=== PATIENT | male | born 1960 | race Caucasian/White ===

== ENCOUNTER 2016-11-04 00:34 | Emergency (ER) | payer OTHER ==
[~2016-11-04] VITALS: Ht 190.5 cm; Wt 105.4 kg
[~2016-11-04 00:34] MED LIST: ASPIR 8181 M1 PO; ASPIR-LOW81 MG PO; ATORVASTATIN CA20 MG PO; Aspirin EC PO; BENZTROPINE MESY1 MG PO; COGENTIN1 MG PO; DAILY VALUE1 EACH PO; DOCUSATE SODIU100 MG PO; FAMOTIDINE20 MG PO; MIRALAX17 GM PO; NICODERM CQ1 EAC2 TP; OXCARBAZEPINE300 MG PO; OXCARBAZEPINE600 MG PO; PRAVASTATIN SOD80 MG PO; QUETIAPINE FUM200 MG PO; QUETIAPINE FUM300 MG PO; QUETIAPINE FUM400 MG PO; RISPERDAL1 MG PO; RISPERIDONE1 MG PO; RISPERIDONE3 MG PO; STOOL SOFTENER100 M1 PO; VIMPAT100 MG PO; VIMPAT50 MG PO; VITAMIN D31000 UNIT PO
[2016-11-04 02:01] LABS: MCH 31.8 PG (29.0-34.0); MCHC 34.2 G/DL (30.0-36.0); MEAN PLAT.VOLUME 10.5 uM^3 (9.0-12.4); PLATELET COUNT 188 K/uL (156-360); RBC DIS.WIDTH-CV 12.8 % (11.8-14.6); RBC DIS.WIDTH-SD 43.6 % (39-53); RED BLOOD COUNT 3.87 M/uL (4.00-5.50); WHITE BLOOD COUNT 7.1 K/uL (4.1-10.2)
[2016-11-04 02:19] LABS: CHLORIDE 107 mEq/L (99-109); POTASSIUM 3.7 mEq/L (3.7-5.4); SODIUM 138 mEq/L (136-147)
[2016-11-04 02:21] LABS: GLUCOSE 106 mg/dL (70-99)
[2016-11-04 02:22] LABS: ANION GAP 9 MEQ/L (2-14)
[2016-11-04 02:24] LABS: SERUM ETHYL ALCOHOL < 10 mg/dL
[2016-11-04 02:25] LABS: GFR ESTIMATE (CALCULATED) > 59 mL/min/
[2016-11-04 02:26] LABS: UREA NITROGEN (BUN) 11 mg/dL (9-23)
[2016-11-04 02:45] VITALS: BP 124/87
== END 2016-11-04 02:46 | disposition home or self-care (01) ==
LOC: EME 00:34
PROVIDERS: Emergency Medicine
DX: G47.00 Insomnia, unspecified (principal); F31.9 Bipolar disorder, unspecified; F20.9 Schizophrenia, unspecified; I10 Essential (primary) hypertension; F17.200 Nicotine dependence, unspecified, uncomplicated
CPT/HCPCS: 80048; 80178; 81003; 85027; 90839; 99281; 99283; G0480

== ENCOUNTER 2017-04-11 23:36 | Emergency (ER) | payer OTHER ==
[~2017-04-11] VITALS: Ht 188 cm; Wt 104.7 kg
[2017-04-12 01:20] LABS: HEMATOCRIT 35.9 % (38.0-50.0); MCH 33.1 PG (29.0-34.0); MCHC 34.3 G/DL (30.0-36.0); MCV 96.5 FL (86-99); MEAN PLAT.VOLUME 11.1 uM^3 (9.0-12.4); PLATELET COUNT 172 K/uL (156-360); RBC DIS.WIDTH-CV 12.4 % (11.8-14.6); RBC DIS.WIDTH-SD 43.8 % (39-53); RED BLOOD COUNT 3.72 M/uL (4.00-5.50)
[2017-04-12 01:26] LABS: PROTHROMBIN TIME 11.3 SEC (10.2-12.9)
[2017-04-12 01:32] LABS: CHLORIDE 110 mEq/L (99-109); POTASSIUM 3.4 mEq/L (3.7-5.4); SODIUM 139 mEq/L (136-147)
[2017-04-12 01:34] LABS: GLUCOSE 122 mg/dL (70-99)
[2017-04-12 01:35] LABS: ANION GAP 9 MEQ/L (2-14)
[2017-04-12 01:38] LABS: GFR ESTIMATE (CALCULATED) > 59 mL/min/; UREA NITROGEN (BUN) 7 mg/dL (9-23)
[2017-04-12 02:35] LABS: TROP-I INTERPRETATION NEGATIVE; TROPONIN-I < 0.01 ng/mL (0.0-0.30)
[2017-04-12] MEDS ORDERED: XARELTO1 EACH PO (03:14)
[2017-04-12 03:26] VITALS: BP 123/85
== END 2017-04-12 03:40 | disposition home or self-care (01) ==
LOC: EME 23:36
PROVIDERS: Nurse Practitioner Family
DX: I82.441 Acute embolism and thrombosis of right tibial vein (principal); R73.9 Hyperglycemia, unspecified; D64.9 Anemia, unspecified; F17.200 Nicotine dependence, unspecified, uncomplicated; R79.89 Other specified abnormal findings of blood chemistry; Z86.718 Personal history of other venous thrombosis and embolism; F31.9 Bipolar disorder, unspecified; F20.9 Schizophrenia, unspecified; Z88.6 Allergy status to analgesic agent
CPT/HCPCS: 80048; 80178; 83880; 84484; 85027; 85610; 85730; 93005; 93970; 99281; 99284

== ENCOUNTER 2017-04-19 19:07 | Emergency (ER) | payer OTHER ==
[~2017-04-19] VITALS: Ht 188 cm; Wt 101.9 kg
[~2017-04-19 19:07] MED LIST changes: +XARELTO1 EACH PO
[2017-04-19] MEDS ORDERED: AQUAPHOR OINTM105 GM TP (23:12)
[2017-04-19] MEDS ORDERED: ATARAX,VISTARIL50 MG PO (23:12)
[2017-04-19 23:41] VITALS: BP 0/0
== END 2017-04-19 23:42 | disposition home or self-care (01) ==
LOC: EME 19:07 → RME 19:07
DX: I82.441 Acute embolism and thrombosis of right tibial vein (principal); D68.59 Other primary thrombophilia; F31.9 Bipolar disorder, unspecified; L85.3 Xerosis cutis; L20.9 Atopic dermatitis, unspecified; F20.9 Schizophrenia, unspecified; I10 Essential (primary) hypertension; F41.9 Anxiety disorder, unspecified; F32.9 Major depressive disorder, single episode, unspecified; F17.200 Nicotine dependence, unspecified, uncomplicated; Z88.6 Allergy status to analgesic agent; Z88.8 Allergy status to other drugs, medicaments and biological substances
CPT/HCPCS: 80178; 90839; 93971; 99281; 99284

== ENCOUNTER 2017-06-25 23:02 | Emergency (ER) | payer OTHER ==
[~2017-06-25] VITALS: Ht 190.5 cm; Wt 101.4 kg
[~2017-06-25 23:02] MED LIST changes: +AQUAPHOR OINTM105 GM TP; +ATARAX,VISTARIL50 MG PO
[2017-06-26] MEDS ORDERED: LIDOCAINE700 MG TP (03:45)
[2017-06-26] MEDS ORDERED: TYLENOL WITH C1 EACH PO (03:46)
[2017-06-26] MEDS ORDERED: FLEXERIL10 MG PO (03:46)
[2017-06-26 03:59] VITALS: BP 119/80
== END 2017-06-26 04:04 | disposition home or self-care (01) ==
LOC: EME 23:02
DX: S39.012A Strain of muscle, fascia and tendon of lower back, initial encounter (principal); M54.9 Dorsalgia, unspecified; G89.29 Other chronic pain; K21.9 Gastro-esophageal reflux disease without esophagitis; F17.200 Nicotine dependence, unspecified, uncomplicated; W18.40XA Slipping, tripping and stumbling without falling, unspecified, initial encounter; Z86.718 Personal history of other venous thrombosis and embolism; Z88.6 Allergy status to analgesic agent
CPT/HCPCS: 72070; 72100; 99281; 99284

== ENCOUNTER 2017-06-27 10:16 | Emergency (ER) | payer OTHER ==
[~2017-06-27] VITALS: Ht 190.5 cm; Wt 106.7 kg
[~2017-06-27 10:16] MED LIST changes: +FLEXERIL10 MG PO; +LIDOCAINE700 MG TP; +TYLENOL WITH C1 EACH PO
[2017-06-27 12:46] VITALS: BP 133/89
== END 2017-06-27 12:46 | disposition home or self-care (01) ==
LOC: EME 10:16
DX: S60.221A Contusion of right hand, initial encounter (principal); W22.09XA Striking against other stationary object, initial encounter; Z88.6 Allergy status to analgesic agent; Z88.8 Allergy status to other drugs, medicaments and biological substances
CPT/HCPCS: 73130; 99281; 99283

== ENCOUNTER 2017-06-27 21:53 | Emergency (ER) | payer OTHER ==
[~2017-06-27] VITALS: Ht 190.5 cm; Wt 101.8 kg
[2017-06-27 22:38] LABS: BASOPHIL (%) 0.7 % (0-1); EOSINOPHIL (%) 6.2 % (0-5); EOSINOPHIL COUNT 0.4 K/uL (0-0.3); HEMOGLOBIN 12.8 G/DL (12.5-16.6); IMMATURE GRANULOCYTE (%) 0.2 % (0.0-0.7); LYMPHOCYTE (%) 29.4 % (15-42); LYMPHOCYTE COUNT 1.7 K/uL (1.0-2.8); MCH 32.7 PG (29.0-34.0); MCHC 34.6 G/DL (30.0-36.0); MCV 94.4 FL (86-99); MONOCYTE COUNT 0.6 K/uL (0-0.8); NEUTROPHIL (%) 53.5 % (45-76); NEUTROPHIL COUNT 3.1 K/uL (1.8-6.4); PLATELET COUNT 142 K/uL (156-360); RBC DIS.WIDTH-CV 12.5 % (11.8-14.6); RBC DIS.WIDTH-SD 43.2 % (39-53); RED BLOOD COUNT 3.92 M/uL (4.00-5.50); WHITE BLOOD COUNT 5.8 K/uL (4.1-10.2)
[2017-06-27 22:50] LABS: ALBUMIN 4.1 g/dL (3.2-4.8); CHLORIDE 108 mEq/L (99-109); SODIUM 138 mEq/L (136-147)
[2017-06-27 22:53] LABS: GLUCOSE 121 mg/dL (70-99); TOTAL PROTEIN 6.2 g/dL (6.4-8.3)
[2017-06-27 22:54] LABS: TOTAL BILIRUBIN 0.4 mg/dL (0.0-1.0)
[2017-06-27 22:55] LABS: SERUM ETHYL ALCOHOL < 10 mg/dL
[2017-06-27 22:56] LABS: ALKALINE PHOSPHATASE 41 IU/L (3-129); CREATININE 0.8 mg/dL (0.6-1.3); GFR ESTIMATE (CALCULATED) > 59 mL/min/ (58.99-99999)
[2017-06-27 22:57] LABS: UREA NITROGEN (BUN) 11 mg/dL (9-23)
[2017-06-27 22:58] LABS: AST (GOT) 25 IU/L (2-34)
[2017-06-27 22:59] LABS: ALT (GPT) 16 IU/L (3-49)
[2017-06-28 01:24] LABS: AMPHETAMINE NEGATIVE (500 ng/mL); BARBITURATES NEGATIVE (200 ng/mL); BENZODIAZEPINES NEGATIVE (150 ng/mL); BUPRENORPHINE NEGATIVE (10 ng/mL); COCAINE NEGATIVE (150 ng/mL); METHADONE NEGATIVE (200 ng/mL); METHAMPHETAMINE NEGATIVE (500 ng/mL); OPIATES (MORPHINE) PRESUMPTIVE POSITIVE (100 ng/mL); OXYCODONE NEGATIVE (100 ng/mL); PHENCYCLIDINE NEGATIVE (25 ng/mL); PROPOXYPHENE NEGATIVE (300 ng/mL); THC CANNABINOIDS NEGATIVE (50 ng/mL); TRICYCLIC ANTIDEPRESSANTS PRESUMPTIVE POSITIVE (300 ng/mL)
[2017-06-28 01:27] VITALS: BP 124/88
== END 2017-06-28 01:28 | disposition home or self-care (01) ==
LOC: EME → EDBD 21:53 → EME 21:53
PROVIDERS: Emergency Medicine
DX: F20.9 Schizophrenia, unspecified (principal); F31.9 Bipolar disorder, unspecified; R56.9 Unspecified convulsions; F17.200 Nicotine dependence, unspecified, uncomplicated; Z88.6 Allergy status to analgesic agent
CPT/HCPCS: 80053; 80164; 80178; 84999; 85025; 90839; 99281; 99284; G0480

== ENCOUNTER 2017-07-18 15:04 | Emergency (ER) | payer OTHER ==
[~2017-07-18] VITALS: Ht 190.5 cm; Wt 100.9 kg
[2017-07-18 16:15] LABS: HEMATOCRIT 41.1 % (38.0-50.0); HEMOGLOBIN 14.3 G/DL (12.5-16.6); MCHC 34.8 G/DL (30.0-36.0); MCV 94.9 FL (86-99); PLATELET COUNT 171 K/uL (156-360); RBC DIS.WIDTH-CV 12.1 % (11.8-14.6); RBC DIS.WIDTH-SD 42.6 % (39-53); RED BLOOD COUNT 4.33 M/uL (4.00-5.50); WHITE BLOOD COUNT 7.2 K/uL (4.1-10.2)
[2017-07-18 16:32] LABS: CHLORIDE 110 mEq/L (99-109); POTASSIUM 4.3 mEq/L (3.7-5.4); SODIUM 141 mEq/L (136-147)
[2017-07-18 16:34] LABS: GLUCOSE 89 mg/dL (70-99)
[2017-07-18 16:37] LABS: SERUM ETHYL ALCOHOL < 10 mg/dL
[2017-07-18 16:38] LABS: CREATININE 1.2 mg/dL (0.6-1.3); GFR ESTIMATE (CALCULATED) > 59 mL/min/ (58.99-99999)
[2017-07-18 16:40] LABS: UREA NITROGEN (BUN) 17 mg/dL (9-23)
[2017-07-18 16:41] LABS: ACETAMINOPHEN (TYLENOL) < 10 mcg/mL (10-30); SALICYLATE < 5.0 MG/DL (15-30)
[2017-07-18 17:05] LABS: AMPHETAMINE NEGATIVE (500 ng/mL); BARBITURATES NEGATIVE (200 ng/mL); BENZODIAZEPINES NEGATIVE (150 ng/mL); BUPRENORPHINE NEGATIVE (10 ng/mL); COCAINE NEGATIVE (150 ng/mL); METHADONE NEGATIVE (200 ng/mL); METHAMPHETAMINE NEGATIVE (500 ng/mL); OPIATES (MORPHINE) NEGATIVE (100 ng/mL); OXYCODONE NEGATIVE (100 ng/mL); PHENCYCLIDINE NEGATIVE (25 ng/mL); PROPOXYPHENE NEGATIVE (300 ng/mL); THC CANNABINOIDS NEGATIVE (50 ng/mL); TRICYCLIC ANTIDEPRESSANTS PRESUMPTIVE POSITIVE (300 ng/mL)
[2017-07-18 18:01] LABS: APPEARANCE SL.HAZY ((CLEAR)); BILIRUBIN NEGATIVE; BLOOD NEGATIVE; COLOR YELLOW ((YELLOW)); GLUCOSE (STRIP) NEGATIVE; KETONES NEGATIVE; LEUKOCYTES NEGATIVE; NITRITE NEGATIVE; PROTEIN (STRIP) 30; SPECIFIC GRAVITY 1.025 (1.000-1.030); UROBILINOGEN 0.2 MG/DL (0.2-1.0)
[2017-07-18 18:11] LABS: BACTERIA NONE SEEN /HPF; EPITHELIAL CELLS RARE /HPF; HYALINE CASTS 0-5 /LPF; MUCUS 3+ /LPF; RED BLOOD CELLS 0-5 /HPF (0-5); UCUL ADDED? NO; WHITE BLOOD CELLS 0-5 /HPF (0-5)
[2017-07-18 18:38] VITALS: BP 119/66
== END 2017-07-18 18:53 | disposition home or self-care (01) ==
LOC: EME 15:04
PROVIDERS: Emergency Medicine
DX: R40.0 Somnolence (principal); T50.995A Adverse effect of other drugs, medicaments and biological substances, initial encounter; F03.90 Unspecified dementia, unspecified severity, without behavioral disturbance, psychotic disturbance, mood disturbance, and anxiety; F20.9 Schizophrenia, unspecified; F31.9 Bipolar disorder, unspecified; R56.9 Unspecified convulsions; F17.200 Nicotine dependence, unspecified, uncomplicated; Z88.6 Allergy status to analgesic agent; Z88.8 Allergy status to other drugs, medicaments and biological substances
CPT/HCPCS: 80048; 81003; 85027; 99281; 99285; G0480

== ENCOUNTER 2017-09-24 19:57 | Emergency (ER) | payer OTHER ==
[~2017-09-24] VITALS: Ht 182.9 cm; Wt 101.4 kg
[2017-09-24 21:03] LABS: HEMATOCRIT 37.4 % (38.0-50.0); HEMOGLOBIN 13.4 G/DL (12.5-16.6); MCH 33.8 PG (29.0-34.0); MCHC 35.8 G/DL (30.0-36.0); MCV 94.2 FL (86-99); PLATELET COUNT 163 K/uL (156-360); RBC DIS.WIDTH-CV 11.8 % (11.8-14.6); RBC DIS.WIDTH-SD 41.1 % (39-53); RED BLOOD COUNT 3.97 M/uL (4.00-5.50); WHITE BLOOD COUNT 8.2 K/uL (4.1-10.2)
[2017-09-24 21:16] LABS: CHLORIDE 108 mEq/L (99-109); POTASSIUM 4.1 mEq/L (3.7-5.4); SODIUM 140 mEq/L (136-147)
[2017-09-24 21:18] LABS: GLUCOSE 126 mg/dL (70-99)
[2017-09-24 21:21] LABS: SERUM ETHYL ALCOHOL < 10 mg/dL
[2017-09-24 21:22] LABS: CREATININE 1.1 mg/dL (0.6-1.3); GFR ESTIMATE (CALCULATED) > 59 mL/min/ (58.99-99999)
[2017-09-24 21:23] LABS: UREA NITROGEN (BUN) 7 mg/dL (9-23)
[2017-09-24] MEDS ORDERED: BUPROPION XL150 MG PO (21:25)
[2017-09-24] MEDS ORDERED: CARBAMAZEPINE400 MG PO (21:26)
[2017-09-24] MEDS ORDERED: ARICEPT10 MG PO (21:26)
[2017-09-24] MEDS ORDERED: DEPAKOTE500 MG PO (21:26)
[2017-09-24] MEDS ORDERED: LITHIUM CARBON300 MG PO (21:27)
[2017-09-24] MEDS ORDERED: MIRALAX17 GM PO (21:27)
[2017-09-24] MEDS ORDERED: QUETIAPINE FUM400 MG PO (21:28)
[2017-09-24] MEDS ORDERED: ZYPREXA10 MG PO (21:28)
[2017-09-24 22:25] VITALS: BP 155/103
== END 2017-09-24 22:27 | disposition home or self-care (01) ==
LOC: EME 19:57
PROVIDERS: Emergency Medicine
DX: F12.10 Cannabis abuse, uncomplicated (principal); F31.9 Bipolar disorder, unspecified; F20.9 Schizophrenia, unspecified; F17.200 Nicotine dependence, unspecified, uncomplicated; Z88.6 Allergy status to analgesic agent; Z88.8 Allergy status to other drugs, medicaments and biological substances
CPT/HCPCS: 80048; 85027; 90839; 99281; 99284; G0480

== ENCOUNTER 2017-09-26 22:14 | Emergency (ER) | payer OTHER ==
[~2017-09-26] VITALS: Ht 190.5 cm; Wt 97.7 kg
[~2017-09-26 22:14] MED LIST changes: +ARICEPT10 MG PO; +BUPROPION XL150 MG PO; +CARBAMAZEPINE400 MG PO; +DEPAKOTE500 MG PO; +LITHIUM CARBON300 MG PO; +ZYPREXA10 MG PO
[2017-09-27 00:36] VITALS: BP 121/80
== END 2017-09-27 00:36 | disposition home or self-care (01) ==
LOC: EME 22:14
DX: F31.9 Bipolar disorder, unspecified (principal); F20.9 Schizophrenia, unspecified; F17.200 Nicotine dependence, unspecified, uncomplicated
CPT/HCPCS: 90839; 99281; 99284

== ENCOUNTER 2017-09-27 22:50 | Emergency (ER) | payer OTHER ==
[~2017-09-27] VITALS: Ht 190.5 cm; Wt 103.7 kg
[2017-09-27 22:56] VITALS: BP 122/86
== END 2017-09-28 00:20 | disposition left against medical advice (07) ==
LOC: EME 22:50
DX: Z53.21 Procedure and treatment not carried out due to patient leaving prior to being seen by health care provider (principal)

== ENCOUNTER 2017-12-06 21:08 | Emergency (ER) | payer OTHER ==
[~2017-12-06] VITALS: Ht 190.5 cm; Wt 103.1 kg
[2017-12-06] MEDS ORDERED: SIMVASTATIN10 MG PO (21:31)
[2017-12-06 23:10] LABS: BASOPHIL (%) 0.8 % (0-1); BASOPHIL COUNT 0.1 K/uL (0-0.1); EOSINOPHIL (%) 4.2 % (0-5); EOSINOPHIL COUNT 0.3 K/uL (0-0.3); HEMATOCRIT 38.4 % (38.0-50.0); HEMOGLOBIN 13.3 G/DL (12.5-16.6); IMMATURE GRANULOCYTE (%) 0.3 % (0.0-0.7); LYMPHOCYTE (%) 30.7 % (15-42); LYMPHOCYTE COUNT 2.2 K/uL (1.0-2.8); MCH 32.5 PG (29.0-34.0); MCHC 34.6 G/DL (30.0-36.0); MCV 93.9 FL (86-99); MONOCYTE (%) 9.6 % (3-12); MONOCYTE COUNT 0.7 K/uL (0-0.8); NEUTROPHIL (%) 54.4 % (45-76); NEUTROPHIL COUNT 3.9 K/uL (1.8-6.4); PLATELET COUNT 143 K/uL (156-360); RBC DIS.WIDTH-CV 11.9 % (11.8-14.6); RBC DIS.WIDTH-SD 40.7 % (39-53); RED BLOOD COUNT 4.09 M/uL (4.00-5.50); WHITE BLOOD COUNT 7.1 K/uL (4.1-10.2)
[2017-12-06 23:25] LABS: CHLORIDE 108 mEq/L (99-109); SODIUM 140 mEq/L (136-147)
[2017-12-06 23:27] LABS: GLUCOSE 102 mg/dL (70-99)
[2017-12-06 23:30] LABS: SERUM ETHYL ALCOHOL < 10 mg/dL
[2017-12-06 23:31] LABS: GFR ESTIMATE (CALCULATED) > 59 mL/min/ (58.99-99999)
[2017-12-06 23:32] LABS: UREA NITROGEN (BUN) 10 mg/dL (9-23)
[2017-12-06 23:50] LABS: AMPHETAMINE NEGATIVE (500 ng/mL); BARBITURATES NEGATIVE (200 ng/mL); BENZODIAZEPINES NEGATIVE (150 ng/mL); BUPRENORPHINE NEGATIVE (10 ng/mL); COCAINE NEGATIVE (150 ng/mL); METHADONE NEGATIVE (200 ng/mL); METHAMPHETAMINE NEGATIVE (500 ng/mL); OPIATES (MORPHINE) NEGATIVE (100 ng/mL); OXYCODONE NEGATIVE (100 ng/mL); PHENCYCLIDINE NEGATIVE (25 ng/mL); PROPOXYPHENE NEGATIVE (300 ng/mL); THC CANNABINOIDS NEGATIVE (50 ng/mL); TRICYCLIC ANTIDEPRESSANTS PRESUMPTIVE POSITIVE (300 ng/mL)
[2017-12-07 01:13] VITALS: BP 131/90
== END 2017-12-07 01:14 | disposition home or self-care (01) ==
LOC: EME 21:08
PROVIDERS: Emergency Medicine
DX: F31.2 Bipolar disorder, current episode manic severe with psychotic features (principal); R44.3 Hallucinations, unspecified; G47.00 Insomnia, unspecified; I10 Essential (primary) hypertension; F17.200 Nicotine dependence, unspecified, uncomplicated
CPT/HCPCS: 80048; 85025; 90839; G0480